=== PATIENT | female | born 2005 | race Two or more races ===

== ENCOUNTER 2023-10-12 09:47 | Emergency (ER) | payer MEDICAID ==
[~2023-10-12] VITALS: Ht 157.5 cm; Wt 72.1 kg
[2023-10-12 11:23] VITALS: BP 123/66; PULSE 71; RESP 18; TEMP 98.4; O2SAT 97
[2023-10-12 11:30] LABS: Urine Bacteria NONE SEEN /hpf (None Seen); Urine Blood Negative /uL (Negative); Urine Clarity Clear (Clear); Urine Color Yellow (Yellow); Urine Mucus FEW (None Seen); Urine Protein, UAD Negative (Negative); Urine Specific Gravity 1.023 (1.001-1.035); Urine Urobilinogen Normal (Negative); Urine WBC 2 /hpf (0 - 5)
[2023-10-12 13:38] LABS: Vaginal Trichomonas Not Present
[2023-10-12 13:39] LABS: Vaginal Bacteria Few
[2023-10-12 13:43] LABS: Vaginal Clue Cells Few; Vaginal Epithelial Cells Moderate
[2023-10-12] MEDS ORDERED: METR-344 PO (13:58)
[2023-10-15 07:06] LABS: Chlamydia Trachomatis, NAA Negative (Negative); Neisseria gonorrhoeae, NAA Negative (Negative)
== END 2023-10-12 14:46 | disposition home or self-care (01) ==
LOC: ER 09:47
DX: N76.0 Acute vaginitis (principal); B96.89 Other specified bacterial agents as the cause of diseases classified elsewhere; Z79.899 Other long term (current) drug therapy
CPT/HCPCS: 81001; 87210

== ENCOUNTER 2025-05-26 14:26 | Emergency (ER) | payer MEDICAID, OTHER ==
[~2025-05-26] VITALS: Ht 157.5 cm; Wt 81.0 kg
[~2025-05-26 14:26] MED LIST: METR-344 PO
[2025-05-26 14:29] VITALS: BP 138/70; PULSE 70; RESP 16; TEMP 97.2; O2SAT 98
--- NOTE | 2025-05-26 14:43 | ED.PDOC ---
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 PATIENT STATES SHE IS CURRENTLY ABOUT 16 WEEKS AND BEGAN TO EXPERIENCE VAGINAL DISCHARGE THAT IS YELLOW IN COLOR TODAY. PATIENT DENIES DYSURIA, HEMATURIA, VAGINAL BLEEDING/SPOTTING, FEVER, CHILLS, SHORTNESS OF BREATH, CHEST PAIN, ABDOMINAL PAIN, NAUSEA, VOMITING, HEADACHE, OR OTHER COMPLAINTS. NO OTHER SYMPTOMS OR MODIFYING FACTORS AT THIS TIME. PATIENT IS ALERT, ORIENTED X 4, AND HAS STEADY GAIT. Chief Complaint: Vaginal Discharge Time Seen by MD: 14:29 Reviewed Notes: Nurses Notes, Medications, Allergies Allergies: Coded Allergies: NO KNOWN ALLERGIES (Unverified , 09/24/14) Home Meds Active Scripts Metronidazole (Flagyl) 500 Mg Tab, 1 TAB PO BID, #14 TAB Prov:BERTHA DELGADO 05/26/25 Nitrofurantoin Monohydrate Mac (Macrobid) 100 Mg Cap, 100 MG PO BID, #20 CAP Prov:BERTHA DELGADO 05/26/25 Metronidazole (Flagyl) 500 Mg Tab, 1 TAB PO BID for 7 Days, #14 TAB 0 Refills Prov:MAMI BENITEZ NP 10/12/23 Information Source: Patient Mode of Arrival: Ambulatory Timing: Days Prehospital treatment: None Severity: Moderate Vaginal Discharge: Yellow Vaginal Lesions: None Vaginal Mass: None Onset Of Mass/Bleeding: Spontaneous Sexual Activity: Last Consensual [place]: Unknown Control: None History of: Current Blood Type: Unknown Symptoms of Possible : None Associated Signs and Symptoms: Vaginal Discharge Past Medical History PAST MEDICAL HISTORY: Denies Surgical History: Denies all surgeries TICKET AGENT History: No Pertinent TICKET AGENT History Family History Family History: Reviewed,noncontributory to illness Social History Smoker: Non-Smoker Alcohol: Denies ETOH Use Drugs: Denies Drug Use Lives In: Home Constitutional: denies: chills, diaphoresis, fatigue, fever, malaise, sweats, weakness, others EENTM: denies: blurred vision, double vision, ear bleeding, ear discharge, ear drainage, ear pain, ear ringing, eye pain, eye redness, hearing loss, mouth pain, mouth swelling, nasal discharge, nose bleeding, nose congestion, nose pain, photophobia, tearing, throat pain, throat swelling, voice changes, others Respiratory: denies: cough, hemoptysis, orthopnea, SOB at rest, shortness of breath, SOB with excertion, stridor, wheezing, others Cardiovascular: denies: chest pain, dizzy spells, diaphoresis, Dyspnea on exertion, edema, irregular heart beat, left arm pain, lightheadedness, palpitations, PND, syncope, others Gastrointestinal: denies: abdomen distended, abdominal pain, blood streaked bowels, constipated, diarrhea, dysphagia, difficulty swallowing, hematemesis, melena, nausea, poor appetite, poor fluid intake, rectal bleeding, rectal pain, vomiting, others Genitourinary: reports: , vagina discharge; denies: abnormal vagina bleeding, burning, dyspareunia, dysuria, flank pain, frequency, hematuria, incontinence, pain, urgency, others Neurological: denies: dizziness, fainting, headache, left sided numbness, left sided weakness, numbness, paresthesia, pre-existing deficit, right sided numbness, right sided weakness, seizure, speech problems, tingling, tremors, weakness, others Musculoskeletal: denies: back pain, gout, joint pain, joint swelling, muscle pain, muscle stiffness, neck pain, others Integumetry: denies: bruises, change in color, change in hair/nails, dryness, laceration, lesions, lumps, rash, wounds, others Allergic/Immunocompromised: denies: Difficulty Healing, Frequent Infections, Hives, Itching, others Hematologic/Lymphatic: denies: anemia, blood clots, easy bleeding, easy bruising, swollen glands, others Endocrine: denies: excessive hunger, excessive sweating, excessive thirst, excessive urination, flushing, intolerance to cold, intolerance to heat, unexplained weight gain, unexplained weight loss, others Psychiatric: denies: anxiety, bipolar disorder, depression, hopeless, panic disorder, schizophrenia, sleepless, suicidal, others All Other Systems: Reviewed and Negative Physical Exam General Appearance: No Apparent Distress, Obese HEENT: Normal ENT Inspection, PERRL/EOMI, Pharynx Normal, TMs Normal Neck: Full Range of Motion, Non-Tender, Normal, Normal Inspection Respiratory: Chest Non-Tender, Lungs Clear, No Accessory Muscle Use, No Respiratory Distress, Normal Breath Sounds Cardiovascular: No Edema, No JVD, No Murmur, No Gallop, Normal Peripheral Pulses, Regular Rate/Rhythm Breast Exam: Deferred Gastrointestinal: No Organomegaly, Non Tender, No Pulsatile Mass, Normal Bowel Sounds, Soft Genitalia: Deferred Pelvic: Discharge (YELLOW AND WHITE VAGINAL DISCHARGE WITH ODOR, NO VAGINAL BLEEDING AND FLUID SEEN. ), Normal External Exam Rectal: Deferred Extremities: No calf tenderness, Normal capillary refill, Normal inspection, Normal range of motion, Non-tender, No pedal edema Musculoskeletal : Apperance: Normal Neurologic: Alert, client services account manager II-XII nml as Tested, No Motor Deficits, Normal Affect, Normal Mood, No Sensory Deficits Cerebellar Function: Normal Reflexes: Normal Skin: Dry, Normal Color, Warm Peripheral Pulses: 2+ carotid (R), 2+ carotid (L) Lymphatic: No Adenopathy Was a procedure done? Was a procedure done?: No Differential Diagnosis (TICKET AGENT) Vaginal Bleeding: N/A Mass / Lesion: N/A Vaginal Discharge: , UTI, Vaginitis - Bacterial, Vaginitis - Candidal, Vaginitis - Trichomonas X-Ray, Labs, Meds, VS Vital Signs Date Time Temp Pulse Resp B/P (MAP) Pulse Ox O2 Delivery O2 Flow Rate FiO2 05/26/25 14:29 97.2 70 16 138/70 98 97.2 Lab Test 05/26/25 15:00 05/26/25 14:49 Range/Units Urine Color Colorless Yellow Urine Clarity Turbid H Clear Urine pH 7.0 5.0-9.0 Urine Specific [place] 1.008 1.001-1.035 Urine Protein Negative Negative Urine Ketones 1+ H Negative Urine Blood Negative Negative /uL Urine Nitrite Negative Negative Urine Bilirubin Negative Negative Urine Urobilinogen Normal Negative mg/dL Urine Leukocyte Esterase 3+ Negative /uL Urine RBC 13 0 - 4 /hpf Urine Microscopic WBC 12 H 0-5 /HPF Urine Squamous Epithelial Cells Few <5 /hpf Urine Bacteria Few H None Seen /hpf Urine Glucose Normal Normal mg/dL Vaginal WBC (Wet Prep) Moderate Vaginal RBC (Wet Prep) Few Vaginal Epithelial Cells (Wet Prep) Many Vaginal Bacteria (Wet Prep) Many Vaginal Trichomonas (Wet Prep) Not present Vaginal Yeast (Wet Prep) None seen Vaginal Clue Cells (Wet Prep) None seen EXAM DESCRIPTION: US OB ULTRASOUND COMP GTR 14 WKS CLINICAL HISTORY: 16 WEEKS , VAGINAL DISCHARGE/FLUID THIS MORNING COMPARISON: None TECHNIQUE: Multiple real-time and static images of the gravid uterus were obtained utilizing color doppler vascularity when appropriate. FINDINGS: A single viable fetus is identified in a cephalic presentation. The presenting part is the head. The placenta is in a anterior location. There is no evidence of placenta previa. The amniotic fluid volume is normal. A three-vessel cord is visualized. The cervical length is 3.4 cm. The cervix is closed. BPD 3.7 cm - 17 weeks 2 days Head circumference 14.2 cm - 17 weeks 4 days Body circumference 10.99 cm - 16 weeks 6 days Femur length 2.2 cm - 16 weeks 4 days. The estimated body weight is 170 g. The heart rate is 147 bpm and the cardiac rhythm is normal. The average sonographic gestational age is 17 weeks and 1 days. IMPRESSION: 1. Single viable intrauterine of 17 weeks and 1 days by sonographic criteria. 2. Ultrasonically estimated date of confinement is 11/02/25 ATED BY: JOSE JUAN ROB MD DICTATED DATE/TIME: 05/26/251551 SIGNED BY: JOSE JUAN ROB MD SIGNED DATE/TIME: 05/26/251551 CC: X-Ray, Labs, Meds, VS Comment EXTERNAL MEDICAL RECORDS REVIEWED: [NONE] INDEPENDENT HISTORIANS: [NONE] SOCIAL DETERMINANTS OF HEALTH: [NONE] LABS ORDERED: UA, WET MOUNT REVIEWED AND INTERPRETED RESULTS: WM BACTERIA MANY, WM WBC MODERATE IMAGING ORDERED: US OB > 14 WKS TREATMENTS ORDERED: NONE PROCEDURES PERFORMED: NONE CRITICAL CARE TIME: NONE I HAVE DISCUSSED THE PATIENT WITH THE ATTENDING PHYSICIAN DR. KENNEY AND HE AGREES WITH THE PATIENT'S PLAN OF CARE AND DISPOSITION. BASED ON HISTORY OF PRESENT ILLNESS, AND PHYSICAL EXAM, PATIENT WILL BE DISCHARGED HOME. DISCUSSED PLAN FOR DISCHARGE HOME WITH RX [MACROBID AND FLAGYL 500 MG]. MEDICATION WARNINGS GIVEN. SHARED DECISION MAKING: PATIENT INSTRUCTED TO FOLLOW UP WITH PRIMARY CARE PROVIDER IN 1-2 DAYS FOR RE-EVALUATION OF SYMPTOMS. PATIENT VERBALIZES UNDERSTANDING TO RETURN TO ED FOR NEW OR WORSENING SYMPTOMS OR IF FOLLOW UP WITH PCP CANNOT BE OBTAINED. PATIENT FEELS COMFORTABLE GOING HOME AT THIS TIME. ALL QUESTIONS ADDRESSED AT TIME OF DISCHARGE. Images Reviewed?: Images reviewed and evaluated by me Time of 1ST Reevaluation: 16:02 Reevaluation 1ST: Improved Patient Education/Counseling: Diagnosis, Treatment, Need For Follow Up Family Education/Counseling: Diagnosis, Treatment, Need For Follow Up Medical Screening: No EMC Exist At This Time Departure 1 Departure Time of Disposition: 16:02 Impression: Primary Impression: Bacterial vaginitis Additional Impressions: Acute UTI (urinary tract infection) Normal in second trimester Disposition: HOME / SELF CARE / HOMELESS Condition: Stable Additional Instructions: FOLLOW-UP WITH PCP AND E[employer] MECHANIC IN 1 TO 2 DAYS. TAKE MEDICATIONS PRESCRIBED. RETURN TO ED FOR ANY NEW OR WORSENING SYMPTOMS. e-Prescriptions Metronidazole (Flagyl) 500 Mg Tab 1 TAB PO BID, #14 TAB Prov: BERTHA DELGADO 05/26/25 Nitrofurantoin Monohydrate Mac (Macrobid) 100 Mg Cap 100 MG PO BID, #20 CAP Prov: BERTHA DELGADO 05/26/25 Discharged With: Self, Spouse Critical Care Note Critical Care Time?: No Stability Stability form required: No I personally scribed for BERTHA DELGADO ([email or web address]) on 05/26/25 at 14:43. Electro nically submitted by Dejan Mccoy ([email or web address]). I personally scribed for BERTHA DELGADO ([email or web address]) on 05/26/25 at 15:59. Electron ically submitted by Dejan Mccoy ([email or web address]). BERTHA DELGADO May 26, 2025 14:43
[2025-05-26 15:09] LABS: Vaginal Trichomonas Not Present
[2025-05-26 15:10] LABS: Vaginal Bacteria Many; Vaginal Clue Cells None Seen; Vaginal Epithelial Cells Many
[2025-05-26 15:12] LABS: Urine Protein, UAD Negative (Negative)
--- NOTE | 2025-05-26 15:55 | DVH ---
EXAM DESCRIPTION: US OB ULTRASOUND COMP GTR 14 WKS CLINICAL HISTORY: 16 WEEKS , VAGINAL DISCHARGE/FLUID THIS MORNING COMPARISON: None TECHNIQUE: Multiple real-time and static images of the gravid uterus were obtained utilizing color doppler vascu larity when appropriate. FINDINGS: A single viable fetus is identified in a cephalic presentation. The presenting part is the head . The placenta is in a anterior location. There is no evidence of placenta previa. The amniotic fluid volume is normal. A three-vessel cord is visualized. The cervical length is 3.4 cm. The cervix is closed. BPD 3.7 cm - 17 weeks 2 days Head circumference 14.2 cm - 17 weeks 4 days Body circumference 10.99 cm - 16 weeks 6 days Femur length 2.2 cm - 16 weeks 4 days. The estimated body weight is 170 g. The heart rate is 147 bpm and the cardiac rhythm is normal. The average sonographic gestational age is 17 weeks and 1 days. IMPRESSION: 1. Single viable intrauterine of 17 weeks and 1 days by sonographic criteria. 2. Ultrasonically estimated date of confinement is 11/02/25
[2025-05-26] MEDS ORDERED: METR-344 PO (16:01)
[2025-05-26] MEDS ORDERED: NITR-87 PO (16:01)
== END 2025-05-26 16:04 | disposition home or self-care (01) ==
LOC: ER 14:26
DX: O23.592 Infection of other part of genital tract in pregnancy, second trimester (principal); O26.892 Other specified pregnancy related conditions, second trimester; O23.42 Unspecified infection of urinary tract in pregnancy, second trimester; N39.0 Urinary tract infection, site not specified; Z3A.17 17 weeks gestation of pregnancy; Z79.899 Other long term (current) drug therapy
CPT/HCPCS: 76805; 81001; 87210